=== PATIENT | female | born 1980 | race Hispanic/Latino ===

== ENCOUNTER → 2020-03-05 | Outpatient (CLI) | payer OTHER, SELFPAY ==
--- NOTE | 2020-03-06 16:34 | US ---
EXAM DESCRIPTION: Pelvis Transvaginal: Ultrasound. CLINICAL HISTORY: 39 years Female abdominal distension 4, para 4. LMP February 08. COMPARISON: None. TECHNIQUE: Transpelvic and Endovaginal scanning; Smith-scale and Doppler modes. FINDINGS: Uterus 8.7 x 5.7 x 3.4 cm 88 mL.. Uterus not retroflexed.. Endometrial thickness 12.7 mm. Myometrium homogeneous. Cervix unremarkable. Cul-de-sac no ffluid. Right ovary 2.5 x 2.3 x 1.7 cm 4.9 mL. Normal waveform and color Doppler vascularity. No follicles or cysts. No adnexal mass or free fluid. Left ovary 2.3 x 2.1 x 1.4 cm 3.7 mL. Normal waveform and color Doppler vascularity. No follicles over cysts. No adnexal mass or free fluid. IMPRESSION: 1. Normal size of the uterus in normal orientation. Thickened endometrium be related to menstrual status. No fluid in the cul-de-sac. 2. Bilateral ovaries unremarkable. Normal size and vascularity. No adnexal mass or free fluid. Electronically signed by: Kevon Loving MD 03/06/2020 4:32 PM [employer]
== END ==
LOC: US 15:47
PROVIDERS: ATTEND Nurse Practitioner Family
DX: R14.0 Abdominal distension (gaseous) (principal); R93.89 Abnormal findings on diagnostic imaging of other specified body structures